=== PATIENT | female | born 1960 | race Caucasian/White ===

== ENCOUNTER 2019-01-14 09:30 | Emergency (ER) | payer SELFPAY ==
[~2019-01-14] VITALS: Ht 157.5 cm; Wt 57.2 kg
[~2019-01-14 09:30] MED LIST: LOPE2CAP PO
[2019-01-14 09:40] VITALS: BP 111/68; PULSE 60; RESP 18; Ht 157.5 cm; Wt 57.2 kg
[2019-01-14] MEDS ORDERED: LOPERAMIDE 2 MG CAP PO ONE (10:00)
== END 2019-01-14 10:12 | disposition home or self-care (01) ==
LOC: E/R 09:30
DX: R19.7 Diarrhea, unspecified (principal)
CPT/HCPCS: 99283